=== PATIENT | male | born 1955 | race Two or more races ===

== ENCOUNTER → 2016-11-24 | Outpatient (REF) | payer OTHER | LOC: M SMT 13:02 | PROVIDERS: ATTEND Nurse Practitioner Women's Health | DX: R31.29 Other microscopic hematuria (principal) ==

== ENCOUNTER → 2020-06-15 | Outpatient (CLI) | payer OTHER ==
[~2020-06-15] MED LIST: PERC5TAB12 PO; SYMB80INH INH; VALS320T3 PO; VENTAER INH
== END ==
LOC: M LABSMTC 09:20
PROVIDERS: ATTEND Anesthesiology
DX: Z01.812 Encounter for preprocedural laboratory examination (principal); Z20.822 Contact with and (suspected) exposure to COVID-19

== ENCOUNTER 2020-06-20 07:34 | Day surgery (SDC) | payer OTHER ==
[~2020-06-20] VITALS: Ht 180.3 cm; Wt 93.3 kg
[~2020-06-20 07:34] MED LIST changes: +CIPROFLOXACIN 400 MG in IV 1 EA IV ONE; +LR 1,000 ML IV ONE; -PERC5TAB12 PO
[2020-06-20] MEDS ORDERED: LIDOCAINE 1% SDV 30ML VIAL As Ordered ONE (09:17)
[2020-06-20] MEDS ORDERED: BUPIVACAINE HCL 0.25% 30ML VIAL As Ordered ONE (09:17)
[2020-06-20] MEDS ORDERED: BACITRACIN OINTMENT 30GM TUBE As Ordered ONE (09:17)
[2020-06-20] MEDS ORDERED: propofoL 200 MG/20 ML VIAL As Ordered ONE (09:48)
[2020-06-20] MEDS ORDERED: ONDANSETRON 4MG/2ML VIAL As Ordered ONE (09:48)
[2020-06-20] MEDS ORDERED: MIDAZOLAM INJ 2MG/2ML VIAL (J2250 PER 1MG) As Ordered ONE (09:48)
[2020-06-20] MEDS ORDERED: dexameTHASONE 4 MG/ML 1ML VIAL (J1100 PER 1MG) As Ordered ONE (09:48)
[2020-06-20] MEDS ORDERED: METOCLOPRAMIDE INJ 10MG/2ML VIAL (J2765 PER 1) As Ordered ONE (09:48)
[2020-06-20] MEDS ORDERED: fentaNYL 100 MCG/2 ML INJECTION (J3010) As Ordered ONE ×2 (09:48→10:20)
[2020-06-20] MEDS ORDERED: LIDOCAINE 2% 100MG/5ML SDV (FOR ANES.) As Ordered ONE (09:48)
[2020-06-20] MEDS ORDERED: ACETAMINOPHEN 1000MG 100ML IV BTL (OFIRMEV) (J0131 PER 10MG) As Ordered ONE (09:49)
[2020-06-20] MEDS ORDERED: ONDANSETRON 4MG/2ML VIAL IV PRN (11:15)
[2020-06-20] MEDS ORDERED: oxyCODONE 5MG TAB PO PRN (11:15)
[2020-06-20] MEDS ORDERED: LR 1,000 ML IV SCH (11:15)
[2020-06-20] MEDS ORDERED: fentaNYL 100 MCG/2 ML INJECTION (J3010) IV PRN (11:15)
[2020-06-20] MEDS ORDERED: PERC5TAB12 PO (11:16)
--- NOTE | 2020-06-20 11:54 | RO ---
OPERATIVE NOTE DATE OF OPERATION: 06/20/2020 PREOPERATIVE DIAGNOSIS: Right hydrocele. POSTOPERATIVE DIAGNOSIS: Right hydrocele. PROCEDURE: Right hydrocelectomy. SURGEON: Michael Moore MD RIGGING LOFT REPAIRER: None. ANESTHESIA: General. OPERATIVE INDICATIONS: This is a 64-year-old male with a large right hydrocele. He is brought to the operating room today for treatment. DESCRIPTION OF PROCEDURE: The patient was brought to the operating room and general anesthesia was induced. Prophylactic antibiotics were infused. He was placed in supine position, prepped and draped in usual sterile fashion. At this point an approximately 7-8 cm transverse incision was made over the right hemiscrotum. I then dissected down through the scrotal wall layers. The testicle was delivered outside of the right hemiscrotum. The tunica vaginalis was then punctured and a large amount of clear fluid drained. We then excised the tunica vaginalis and oversewed the edges using a running 3-0 Vicryl suture. Once that was done we checked for hemostasis and any areas of bleeding were controlled with electrocautery. The testicle was then delivered back inside the right hemiscrotum in its normal anatomic position. The dartos muscle was then closed with running 3-0 Vicryl suture. Skin was reapproximated with interrupted 2-0 chromic suture and this marked the conclusion of the procedure. The patient was awakened from anesthesia and transferred to the recovery room in stable condition. ESTIMATED BLOOD LOSS: 10 mL. COMPLICATIONS: None. SPECIMEN: Right hydrocele sac. PLAN: The patient will follow up in urology clinic in approximately 2-3 weeks for postoperative visit. SHERWIN
[2020-06-20 11:55] VITALS: BP 138/91
== END 2020-06-20 12:40 | disposition home or self-care (01) ==
LOC: M SDC 07:34
PROVIDERS: ATTEND Urology
DX: N43.3 Hydrocele, unspecified (principal); F17.210 Nicotine dependence, cigarettes, uncomplicated; I10 Essential (primary) hypertension; J30.9 Allergic rhinitis, unspecified; J44.9 Chronic obstructive pulmonary disease, unspecified; N52.9 Male erectile dysfunction, unspecified; R23.3 Spontaneous ecchymoses; Z79.899 Other long term (current) drug therapy
CPT/HCPCS: 55040; 88302; J0131; J0744; J1100; J2250; J2405; J2765; J3010

== ENCOUNTER → 2020-11-03 | Outpatient (CLI) | payer OTHER ==
[~2020-11-03] MED LIST changes: -CIPROFLOXACIN 400 MG in IV 1 EA IV ONE; -LR 1,000 ML IV ONE; +PERC5TAB12 PO
--- NOTE | 2020-11-03 09:21 | REP ---
INDICATION: TESTICULAR SWELLING COMPARISON: 03/17/2020 TECHNIQUE: Monsalve scale and color Doppler evaluation using linear and curved array transducer with color Doppler evaluation. FINDINGS: The right testicle measures 4.1 x 2.9 x 3.3 cm and includes few scattered nonspecific chronic calcifications as well as 7 x 6 x 6 mm cyst and a 7 cm complex right epididymal head cyst/spermatocele versus hydrocele essentially unchanged. The left testicle measures 4.3 x 2.3 x 2.7 cm and includes few scattered nonspecific chronic calcifications as well as epididymal appendix with calcification. Small left hydrocele is identified and likely nonspecific/chronic. No varicoceles. Vascularity to the bilateral testicles is relatively symmetric and normal. IMPRESSION: 1. Findings are essentially unchanged compared to prior examination. 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 <Electronically signed by Bakari Khalil > 11/03/20 0917
== END ==
LOC: M RAD 07:11
PROVIDERS: ATTEND Nurse Practitioner Women's Health
DX: N50.89 Other specified disorders of the male genital organs (principal)